=== PATIENT | female | born 1950 | race Caucasian/White ===

== ENCOUNTER 2020-05-23 21:16 | Emergency (ER) | payer MEDICARE, SELFPAY ==
[2020-05-23] VITALS (24 sets, daily range): BP systolic 109–137; BP diastolic 56–88; PULSE 76–88; RESP 12–33; TEMP 36.8–36.9; O2SAT 86–100; BMI 30.7
--- NOTE | 2020-05-23 21:17 | DI.RAD.S_ITS ---
PROCEDURE: XR HIP W PEL IF DONE RT 2V INDICATIONS: hip pain, suspect dislocation TECHNIQUE: 2 views of the hip were acquired. COMPARISON: None. FINDINGS: Bones: There is posterior dislocation of the right total hip arthroplasty. No fracture visualized. Left hip arthroplasty appears intact. Soft tissues: No suspicious soft tissue calcifications or masses. IMPRESSION: Posterior right hip arthroplasty dislocation. Dictated by: Jayshree Caba M.D. on 05/23/2020 at 21:54 Approved by: Jayshree Caba M.D. on 05/23/2020 at 21:54
--- NOTE | 2020-05-23 21:55 | PC.NURSE ---
patient given 50mg ketamine, 150mcg fentnyl and unknown dose of phennegrin in the field. Patient arrived to ED yelling untrollably in response to pain and ketamine. Pt unable to give full details upon arrival.
--- NOTE | 2020-05-23 21:56 | ED_ITS ---
HPI - Fall General Chief Complaint: Fall Stated Complaint: Dislocated R Hip Time Seen by Provider: 05/23/20 21:17 Source: EMS Mode of arrival: EMS Limitations: no limitations History of Present Illness HPI Narrative: 69-year-old female nonsmoker presents by EMS for evaluation of severe right hip pain. 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 Patient states she was sitting in a cam chair and leaned over and felt a pop in her hip and then developed significant pain and instability. EMS was called and their evaluation is highly suspicious for hip dislocation as they report shortening and rotation. There was some difficulty in a distracting the patient from where she was in a local park and as a result she was given ketamine and fentanyl prior to her arrival. She denies any other injury and is otherwise well and free of complaint. Onset (ago): hour(s) Fall from: chair Fall witnessed: yes, by family Loss of consciousness: none Prolonged down time: no Symptoms prior to fall: none Severity: severe Quality: burning and sharp Associated symptoms (after fall): denies Review of Systems Constitutional Constitutional: Denies chills, Denies fatigue, Denies fever(s), Denies frequent falls, Denies lethargy and Denies weakness Eyes Eyes: Denies change in vision, Denies eye discharge, Denies irritation and Denies loss of vision ENT Ears, Nose, Mouth, and Throat: Denies change in voice, Denies dizziness, Denies neck pain, Denies sore throat and Denies throat swelling Cardiovascular Cardiovascular: Denies chest pain, Denies irregular heart rhythm, Denies lightheadedness, Denies palpitations, Denies dyspnea, Denies dyspnea on exertion and Denies orthopnea Respiratory Respiratory: Denies cough, Denies dyspnea, Denies dyspnea on exertion and Denies wheezing Gastrointestinal Gastrointestinal: Denies abdominal pain, Denies change in bowel habits, Denies diarrhea, Denies nausea and Denies vomiting Musculoskeletal Musculoskeletal: Reports arthralgias, Denies neck pain and Denies numbness Integumentary/Breasts Skin/Breast: Denies pruritus, Denies erythema, Denies rash and Denies wounds Neurologic Neurologic: Denies behavioral changes, Denies confusion, Denies dizziness, Denies frequent falls, Denies loss of vision, Denies numbness and Denies weakness Psychiatric Psychiatric: Denies anxiety, Denies behavioral changes, Denies confusion, Denies depression, Denies homicidal ideation and Denies suicidal ideation Endocrine Endocrine: Denies fatigue, Denies flushing and Denies palpitations Hematologic/Lymphatic Hematologic/Lymphatic: Denies easy bruising Allergic/Immunologic Allergic/Immunologic: Denies urticaria, Denies throat swelling and Denies wheezing Patient History Smoking Status: Never smoker alcohol intake frequency: 0-2 drinks per day Substance Use Type: does not use Exam Narrative Exam Narrative: GENERAL: [69] year old patient appears stated age. Well- nourished, well-developed patient, in obvious pain, crying and rubbing her right hip HEAD: Atraumatic. Normocephalic. EYES: Pupils equal round and reactive. Extraocular motions intact. No scleral icterus. No injection or drainage. ENT: Nose without bleeding, purulent drainage. Throat without erythema, tonsillar hypertrophy or exudate. Airway patent. NECK: Trachea midline. Non tender CARDIOVASCULAR: Regular rate and rhythm without murmurs, gallops, or rubs. RESPIRATORY: Clear to auscultation. Breath sounds equal bilaterally. No wheezes, rales, or rhonchi. GASTROINTESTINAL: Abdomen soft, non-tender, nondistended. EXTREMITIES: Severe right hip pain with shortening and internal rotation BACK: Nontender without deformity or crepitance. No flank tenderness. NEURO: AOx3. SKIN: No rash or erythema of visible areas Initial Vital Signs Initial Vital Signs: Vital Signs Temperature 98.4 F 05/23/20 21:47 Pulse Rate 82 05/23/20 21:47 Respiratory Rate 27 H 05/23/20 21:47 Blood Pressure 137/88 05/23/20 21:47 Pulse Oximetry 97 05/23/20 21:47 Procedures Orthopedic Joint Reduction Joint #1: Time Out Performed: Yes Side: right Joint Reduction Location: hip Analgesia: procedural sedation Technique used: traction/counter-traction and direct manipulation Post-reduction neuro exam: intact Post-reduction vascular: intact Post Reduction X-Ray Obtained: Yes Post Reduction X-Ray Results: reduced Patient Tolerated Procedure: Well Procedural Sedation Consent signed: Yes Time out performed: Yes Indication: fracture/dislocation reduction ASA Class: I Mallampati Airway Classification: Class I Preparation: cash applications manager applied, pulse oximeter, capnometry used, supplemental O2 applied, suction/airway equipment at bedside and IV secured IV Propofol dose (mg): 50 Intraservice time/total sedation time (min): 10 ED Sedation Level: Minimal Patient Tolerated Procedure: Well Complications: none Course Orders Ordered: ED Orders 05/23/20 22:30 XR hip RT 1V Stat Discontinued Medications Propofol (Diprivan) 100 mg IV NOW ONE Stop: 05/23/20 21:55 Last Admin: 05/23/20 22:28 Dose: 50 mg Documented by: AJ Vital Signs Vital signs: Vital Signs - 8 hr 05/23/20 22:45 05/23/20 22:50 05/23/20 22:51 Temperature Pulse Rate 82 78 79 Respiratory Rate 16 18 22 Blood Pressure 123/77 122/66 Pulse Oximetry 98 96 95 05/23/20 22:54 05/23/20 22:55 05/23/20 22:56 Temperature Pulse Rate 76 77 Respiratory Rate 20 23 Blood Pressure 112/64 Pulse Oximetry 100 98 98 05/23/20 23:00 05/23/20 23:05 05/23/20 23:10 Temperature Pulse Rate 76 82 Respiratory Rate 23 Blood Pressure 115/65 121/71 117/58 L Pulse Oximetry 97 94 05/23/20 23:15 05/23/20 23:25 05/23/20 23:30 Temperature Pulse Rate 79 80 76 Respiratory Rate 23 24 24 Blood Pressure 113/56 L 111/63 109/61 Pulse Oximetry 94 95 93 05/24/20 00:01 Temperature 98.6 F Pulse Rate 80 Respiratory Rate 16 Blood Pressure 137/75 Pulse Oximetry 98 MDM - Fall Imaging Data Extremity x-ray #1: Attestation: I personally reviewed and interpreted this imaging study as follows: My Impression: R hip dislocation Extremity x-ray #2: Attestation: I personally reviewed and interpreted this imaging study as follows: My Impression: interval reduction of R hip Discharge Plan Departure Patient Disposition: Home Clinical Impression: Dislocation, hip closed Qualifiers: Encounter type: initial encounter Laterality: right Qualified Code(s): S73.004A - Unspecified dislocation of right hip, initial encounter Discharge Date/Time: 05/24/20 00:05 Instructions: DI for Hip Dislocation -- Adult Activity Restrictions/Additional Instructions: *You have been diagnosed with [right hip dislocation] *What to do: *Take medications as directed *Follow up with your primary care provider in 2-3 days, call for an appointment. Let them know you were seen in the Emergency Department and that we ask that you be seen in follow up *Return to ER if you should have any new, worsening or concerning symptoms
[2020-05-23] MEDS: propofoL 200 MG/20 ML VIAL 100 MG IV (22:28)
--- NOTE | 2020-05-23 22:30 | DI.RAD.S_ITS ---
PROCEDURE: XR HIP RT 1V INDICATIONS: post reduction TECHNIQUE: 2 view(s) of the hip acquired. COMPARISON: [facility], CR, XR HIP W PEL IF DONE RT 2V, 05/23/2020, 21:19. FINDINGS: Bones: Patient is status post bilateral hip arthroplasties. Femoral component of the right hip arthroplasty is normally associated with the the acetabular component. The hip joint appears congruent. The visualized bony structures appear intact. Soft tissues: Overlying postoperative changes are noted. No suspicious soft tissue densities. IMPRESSION: Status post reduction of right hip arthroplasty prosthesis. Dictated by: Nichole Browne MD, PhD on 05/24/2020 at 8:17 Approved by: Nichole Browne MD, PhD on 05/24/2020 at 8:18
[2020-05-24 00:01] VITALS: BP 137/75; PULSE 80; RESP 16; TEMP 37; O2SAT 98
== END 2020-05-24 00:05 | disposition home or self-care (01) ==
PROVIDERS: Emergency Provider Emergency Medicine
DX: S73.004A Unspecified dislocation of right hip, initial encounter (principal)
CPT/HCPCS: 27265; 73501; 73502; 94760; 94770; 99152; 99284; 99285; J2704